=== PATIENT | male | born 1980 | race Caucasian/White ===

== ENCOUNTER 2022-04-14 19:53 | Emergency (ER) | payer MEDICAID ==
[~2022-04-14] VITALS: Ht 190.5 cm; Wt 180.0 kg
[~2022-04-14 19:53] MED LIST: NO HOME MEDS
[2022-04-14 21:34] LABS: BASOPHILS # (AUTO) 0.1 X10'3 (0-0.2); BASOPHILS % (AUTO) 1.4 % (0-1); EOSINOPHILS # (AUTO) 0.3 X10'3 (0-0.9); EOSINOPHILS % (AUTO) 3.8 % (0-6); HEMATOCRIT 41.3 % (42.0-52.0); LYMPHOCYTES # (AUTO) 1.9 X10'3 (1.1-4.8); LYMPHOCYTES % (AUTO) 26.1 % (21-51); MEAN CORPUSCULAR HEMOGLOBIN 29.9 PG (27.0-31.0); MEAN CORPUSCULAR VOLUME 87.8 FL (78-98); MEAN PLATELET VOLUME 8.4 FL (7.4-10.4); MONOCYTES # (AUTO) 0.7 X10'3 (0-0.9); MONOCYTES % (AUTO) 9.9 % (2-12); NEUTROPHILS # (AUTO) 4.3 X10'3 (1.8-7.7); NEUTROPHILS % (AUTO) 58.8 % (42-75); PLATELET COUNT 223 X10'3 (140-440); RED CELL DISTRIBUTION WIDTH 13.2 % (11.5-14.5); WHITE BLOOD COUNT 7.4 X10'3 (4.5-11.0)
[2022-04-14 21:40] LABS: ALANINE AMINOTRANSFERASE 27 U/L (12-78); ALBUMIN 3.7 G/DL (3.4-5.0); ALBUMIN/GLOBULIN RATIO 1.1 (1.1-1.5); ALKALINE PHOSPHATASE 49 IU/L (46-116); ANION GAP 5 (8-16); ASPARTATE AMINO TRANSFERASE 19 U/L (10-37); BLOOD UREA NITROGEN 19 MG/DL (7-18); BUN/CREATININE RATIO 19.2 (5.4-32.0); CALCIUM 8.6 MG/DL (8.5-10.1); CHLORIDE 108 MMOL/L (99-107); CREATININE 0.99 MG/DL (0.60-1.10); GLUCOSE 103 MG/DL (70-104); POTASSIUM 3.8 MMOL/L (3.5-5.1); SODIUM 143 MMOL/L (135-145); TOTAL CARBON DIOXIDE 29.7 MMOL/L (24-32); eGFR 83 ML/MIN
[2022-04-14] MEDS ORDERED: ondansetron 4mg rapidly disintigrating tab PO ONE (22:25)
[2022-04-14] MEDS ORDERED: morphine 4 MG/ML inj SYRINge IM ONE (22:25)
[2022-04-15 01:56] VITALS: BP 118/70
[2022-04-15] MEDS ORDERED: METH4TAB3 PO (17:35)
[2022-04-15] MEDS ORDERED: IBUP-1984 PO (17:35)
== END 2022-04-15 02:14 | disposition home or self-care (01) ==
LOC: ER 20:02
DX: M54.50 Low back pain, unspecified (principal); Z79.899 Other long term (current) drug therapy
CPT/HCPCS: 36415; 72128; 72131; 80053; 85025; 96372; 99284; J2270

== ENCOUNTER 2022-04-15 17:55 | Emergency (ER) | payer MEDICAID ==
[~2022-04-15] VITALS: Ht 190.5 cm; Wt 81.8 kg
[2022-04-15 11:10] VITALS: BP 129/84
[~2022-04-15 17:55] MED LIST changes: +IBUP-1984 PO; +METH4TAB3 PO; +ketorolac trometh. 30mg/ml inj. IM ONE; +morphine 4 MG/ML inj SYRINge IM ONE; +ondansetron 4mg rapidly disintigrating tab PO ONE
[2022-04-15] MEDS ORDERED: dexamethasone sod phosphate 10mg/ml inj IM STA (18:02)
== END 2022-04-15 18:18 | disposition home or self-care (01) ==
LOC: ER 17:55
DX: M51.26 Other intervertebral disc displacement, lumbar region (principal); R20.0 Anesthesia of skin; R53.1 Weakness; Z79.899 Other long term (current) drug therapy
CPT/HCPCS: 72148; 96372; 99284; J1100; J1885; J2270